=== PATIENT | male | born 1995 | race Caucasian/White ===

== ENCOUNTER 2018-07-26 08:08 | Emergency (ER) | payer OTHER ==
--- NOTE | 2018-07-26 08:24 | EDPHY ---
H & P Time Seen by Provider: 07/26/18 08:24 HPI/ROS: CHIEF COMPLAINT: Epigastric pain and vomiting HISTORY OF PRESENT ILLNESS: Started last night around 11:00 p.m. Multiple episodes of nausea and vomiting, epigastric abdominal pain. Occasional alcohol but not every day. No recent injury or trauma. No diarrhea or fevers. Not better or worse with anything, symptoms moderate to severe. REVIEW OF SYSTEMS: Eye: no change in vision ENT: no sore throat Cardiac: no chest pain or syncope Pulmonary: no cough or SOB Abdomen: HPI Musculoskeletal: no back pain Skin: no rash Neuro: no headache Constitutional: no fever : no urinary symptoms A comprehensive 10 point review of systems is otherwise negative aside from elements mentioned in the history of present illness. 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 Eyes: No scleral icterus. ENT, Mouth: Dry mucous membranes. Respiratory: Normal respiratory effort, breath sounds equal, lungs are clear to auscultation. Cardiovascular: Regular rate and rhythm. Gastrointestinal: Abdomen is soft and non tender. Negative for McBurney's point or Ovalle's tenderness. Normal male . Neurological: Alert, face symmetric, normal motor and sensory in extremities. Skin: Warm and dry, no rashes. Musculoskeletal: No peripheral edema. Psychiatric: Not agitated. Emergency Department course/MDM: Likely food related or gastrointestinal viral infection. Bowel obstruction or appendicitis or pancreatitis considered less likely. IV normal saline 2 L, Zofran 4 mg IV. 929: abdomen soft nontender, taking oral fluids. Smoking Status: Current every day smoker Constitutional: Initial Vital Signs Temperature (C) 36.7 C 07/26/18 08:12 Heart Rate 115 H 07/26/18 08:12 Respiratory Rate 16 07/26/18 08:12 Blood Pressure 145/90 H 07/26/18 08:12 O2 Sat (%) 98 07/26/18 08:12 O2 Delivery Mode Room Air Allergies/Adverse Reactions: Cephalosporins Allergy (Verified 07/26/18 08:12) Home Medications: Medication Instructions Recorded NK [No Known Home Meds] 07/26/18 Medical Decision Making - Data Points Laboratory Results: Laboratory Results 07/26/18 08:20 07/26/18 08:20 07/26/18 07/26/18 08:20 08:20 WBC 11.00 10^3/uL H 10^3/uL (3.80-9.50) RBC 5.18 10^6/uL 10^6/uL (4.40-6.38) Hgb 17.0 g/dL g/dL (13.7-17.5) Hct 48.9 % % (40.0-51.0) MCV 94.4 fL fL (81.5-99.8) MCH 32.8 pg pg (27.9-34.1) MCHC 34.8 g/dL g/dL (32.4-36.7) RDW 12.3 % % (11.5-15.2) Plt Count 258 10^3/uL 10^3/uL (150-400) MPV 9.9 fL fL (8.7-11.7) Neut % (Auto) 81.9 % H % (39.3-74.2) Lymph % (Auto) 11.7 % L % (15.0-45.0) [place] % (Auto) 5.0 % % (4.5-13.0) Eos % (Auto) 0.5 % L % (0.6-7.6) Baso % (Auto) 0.5 % % (0.3-1.7) Nucleat RBC Rel Count 0.0 % % (0.0-0.2) Absolute Neuts (auto) 9.00 10^3/uL H 10^3/uL (1.70-6.50) Absolute Lymphs (auto) 1.29 10^3/uL 10^3/uL (1.00-3.00) Absolute Monos (auto) 0.55 10^3/uL 10^3/uL (0.30-0.80) Absolute Eos (auto) 0.06 10^3/uL 10^3/uL (0.03-0.40) Absolute Basos (auto) 0.06 10^3/uL 10^3/uL (0.02-0.10) Absolute Nucleated RBC 0.00 10^3/uL 10^3/uL (0-0.01) Immature Gran % 0.4 % % (0.0-1.1) Immature Gran # 0.04 10^3/uL 10^3/uL (0.00-0.10) Sodium 143 mEq/L mEq/L (135-145) Potassium 4.1 mEq/L mEq/L (3.5-5.2) Chloride 107 mEq/L mEq/L (97-110) Carbon Dioxide 24 mEq/l mEq/l (22-31) Anion Gap 12 mEq/L mEq/L (6-14) BUN 13 mg/dL mg/dL (7-23) Creatinine 0.9 mg/dL mg/dL (0.7-1.3) Estimated GFR > 60 Glucose 94 mg/dL mg/dL (70-100) Calcium 10.0 mg/dL mg/dL (8.5-10.4) Lipase 41 IU/L IU/L (23-300) Medications Given: Discontinued Medications Sodium Chloride (Ns) 1,000 mls @ 0 mls/hr IV EDNOW ONE; Wide Open PRN Reason: Protocol Stop: 07/26/18 08:31 Last Admin: 07/26/18 08:38 Dose: 1,000 mls Sodium Chloride (Ns) 1,000 mls @ 0 mls/hr IV EDNOW ONE; Wide Open PRN Reason: Protocol Stop: 07/26/18 08:31 Last Admin: 07/26/18 08:38 Dose: 1,000 mls Ondansetron HCl (Zofran) 4 mg IVP EDNOW ONE Stop: 07/26/18 08:31 Last Admin: 07/26/18 08:38 Dose: 4 mg Departure - Departure Disposition: Home, Routine, Self-Care Clinical Impression: Nausea & vomiting Qualifiers: Vomiting type: unspecified Vomiting Intractability: non-intractable Qualified Code(s): R11.2 - Nausea with vomiting, unspecified Abdominal pain Qualifiers: Abdominal location: epigastric Qualified Code(s): R10.13 - Epigastric pain Condition: Good Instructions: Acute Nausea and Vomiting (ED) Additional Instructions: You need to return to the emergency department immediately if you develop worsening or severe pain, fever, vomiting or you are not completely better in 8- 12 hours. Referrals: Aurelia Zhang MD [Medical Doctor] - As per Instructions Stand Alone Forms: Work Excuse
[2018-07-26] MEDS ORDERED: ONDANSETRON 4 MG/2 ML VIAL IVP ONE (08:30)
[2018-07-26] MEDS ORDERED: NS 1,000 ML IV ONE ×2 (08:30)
[2018-07-26 08:35] LABS: PLATELET COUNT 258 10^3/uL (150-400)
[2018-07-26 10:13] VITALS: BP 133/87
== END 2018-07-26 10:15 | disposition home or self-care (01) ==
DX: R11.2 Nausea with vomiting, unspecified (principal); R10.13 Epigastric pain; E86.9 Volume depletion, unspecified
CPT/HCPCS: 96374; J2405